=== PATIENT | female | born 1965 | race American Indian/Alaskan Native ===

== ENCOUNTER 2023-11-15 20:15 | Outpatient (CLI) | payer OTHER | END 2023-11-15 20:16 | disposition EMS.NT | LOC: EMS 20:15 | DX: S61.211A Laceration without foreign body of left index finger without damage to nail, initial encounter (principal); W26.0XXA Contact with knife, initial encounter; Y93.G1 Activity, food preparation and clean up; Y92.000 Kitchen of unspecified non-institutional (private) residence as the place of occurrence of the external cause ==

== ENCOUNTER 2023-11-15 21:17 | Emergency (ER) | payer OTHER ==
[2023-11-15 21:30] VITALS: BP 152/100
--- NOTE | 2023-11-15 21:30 | ED Physician Documentation ---
PD HPI UPPER EXT INJURY - Stated complaint Stated Complaint: L FINGER LAC - Chief complaint Chief Complaint: Laceration - History obtained from History obtained from: Patient (This is a right-handed woman who is up-to-date on tetanus he accidentally cut her left index finger with a knife at home just prior to arrival.) PD PAST MEDICAL HISTORY - Past Medical History Past Medical History: No Cardiovascular: None Respiratory: None Neuro: None Endocrine/Autoimmune: None GI: None STOCK CONTROL CLERK: None : None HEENT: None Psych: None Musculoskeletal: None Derm: None - Past Surgical History Past Surgical History: No - Present Medications Home Medications: Ambulatory Orders Medication Instructions Recorded Confirmed cephALEXin [Keflex] 500 mg PO Q6H #20 cap 11/15/23 - Allergies Allergies/Adverse Reactions: Allergies Allergy/AdvReac Type Severity Reaction Status Date / Time No Known Drug Allergies Allergy Verified 11/15/23 21:26 - Social History Does the pt smoke?: No Smoking Status: Never smoker Does the pt drink ETOH?: Yes Does the pt have substance abuse?: No - Immunizations Immunizations are current?: Yes - POLST Patient has POLST: No PD ED PE NORMAL - Vitals Vital signs reviewed: Yes - General General: Alert and oriented X 3, No acute distress - Extremities Extremities: Other (There is a laceration at the level of the DIP of the left index finger. She is unable to extend the digit past that level.) - Neuro Neuro: Alert and oriented X 3, Normal speech Results - Vitals Vitals: Vital Signs - 24 hr 11/15/23 21:18 Temperature 36.6 C Heart Rate 98 Respiratory 17 Rate Blood Pressure 152/100 H O2 Saturation 97 Oxygen O2 Source Room air Procedures - Laceration (location) L 2nd finger Length in cm: 2 Wound type: Linear Neurovascular status: Sensory intact Tendon involvement: Tendon Injury (mallet finger deformity and cannot extend it) Anesthesia: Marcaine 0.5% (digitial block with good anesthesia) Wound preparation: Irrigated copiously NS Skin layer closure: Nylon, Interrupted, Size #-0 - enter number (4-0), Sutures - enter # (4) Other: Patient tolerated well, No complications, Neurovascular intact, Tetanus UTD - Splint (location) - Minor L 2nd finger Splint applied by: Physician Type of splint: Metal foam finger splint Other: Patient tolerated well, No complications, Neurovascular intact PD Medical Decision Making - ED course ED course: 58-year-old woman has a laceration at the level of the DIP of the left second finger with apparent extensor tendon laceration. It was washed out and the skin was closed and she is placed on Keflex. Placed in extension splint and advised for follow-up with orthopedics or hand surgery. Departure - Departure Disposition: 01 Home, Self Care Clinical Impression: Finger laceration involving tendon Condition: Good Record reviewed to determine appropriate education?: Yes Instructions: ED Laceration Hand Follow-Up: [facility] [Provider Group] Prescriptions: cephALEXin [Keflex] 500 mg PO Q6H #20 cap Comments: As discussed, you have a laceration of the extensor tendon apparently at the level of the distal interphalangeal joint of your left index finger. Follow-up with your doctor, you can call tomorrow, you will need a referral to a hand surgeon or military technology specialist for evaluation and potential definitive repair of this. The number for our local orthopedist clinic is on this form as well should you choose to go with them instead of the [facility] where the rest of your care is. Either way you should be seen within the week. Keep the current dressing on until Sunday at which point you can remove it briefly to wash with soap and water and then reapply a Band-Aid and the splint to keep it straight. Forms: PCP List
[2023-11-15] MEDS: BUPIVACAINE 0.5% PF 10 ML VIAL SUBQ STA (21:39)
[2023-11-15] MEDS: cephALEXin 250 MG CAPSULE PO STA (22:02)
[2023-11-15 22:19] VITALS: O2SAT 0
== END 2023-11-15 22:07 | disposition home or self-care (01) ==
LOC: ED 21:17
DX: S56.428A Laceration of extensor muscle, fascia and tendon of left little finger at forearm level, initial encounter (principal); W26.0XXA Contact with knife, initial encounter; Y92.009 Unspecified place in unspecified non-institutional (private) residence as the place of occurrence of the external cause
CPT/HCPCS: 13131; 99283; A9270